=== PATIENT | male | born 1955 | race Caucasian/White ===

== ENCOUNTER 2018-01-28 18:41 | Emergency (ER) | payer OTHER ==
[~2018-01-28 18:41] MED LIST: ABIL5TAB6 PO; ECOT81TA2 PO; OMEP20TA39 PO; PRAV40 PO; TRAZ50TA4 PO
== END 2018-01-28 19:44 | disposition left against medical advice (07) ==
LOC: NED 18:41
DX: Z53.21 Procedure and treatment not carried out due to patient leaving prior to being seen by health care provider (principal)
CPT/HCPCS: 99281

== ENCOUNTER → 2018-04-01 | Outpatient (CLI) | payer OTHER ==
[~2018-04-01] MED LIST changes: +IOHEXOL 350 MG/ML 10 ML VIAL (for RAD DIAG) IVCONTRAST ONE
--- NOTE | 2018-04-01 14:40 | RADRPT ---
EXAM DATE: 04/01/2018 12:00 PM EDT AGE/SEX: 62 years / Male INDICATIONS: Chest pain, small reversible inferoapical defect on nuclear stress test CLINICAL DATA: This is the patient's initial encounter. Patient reports that signs and symptoms have been present for 1 day and indicates a pain score of 0/10. MEDICAL/SURGICAL HISTORY: Hypertension. . liver surgery RADIATION DOSE: 3.65 CTDI (mGy) COMPARISON: No prior [place] exams available for comparison. STUDY QUALITY: The examination is of good diagnostic quality. TECHNIQUE: The patient was given beta-blockers prior to the procedure. Resting heart rate prior to t he procedure was approximately bpm. Multiple contiguous axial images were obtained through the heart during bolus infusion of 90 ml Omnipaque 350 (iohexol) nonionic water-soluble contrast as a single e xam dose. Images were acquired during peak arterial contrast. Images were reconstructed using a retr ospective gating algorithm including single sector and multi-sector algorithms at multiple phases of the cardiac cycle. Images were interpreted using a combination of 2D and 3D visualization modes inclu ding curved planar reformation, thin slab maximum intensity projection and volume rendering in order to evaluate cardiac structure, morphology and function. Using automated exposure control and adjustme nt of the mA and/or kV according to patient size, radiation dose was kept as low as reasonably achiev able to obtain optimal diagnostic quality. FINDINGS: The limited portion of pulmonary parenchyma visualized is clear. Noncontrast calcium scoring was performed. This demonstrated total calcium score of 233. This places the patient in the 60th percentile rank. Immediately following this, post contrast CT angiography of the coronary circulation was performed. VESSEL ANALYSIS: There are three aortic valve leaflets with normal origin of the coronary ostia. DOMINANCE: The coronary system is right dominant. LEFT MAIN: Normal size vessel without calcification or stenosis. LAD: There is patchy atherosclerotic disease involving the proximal LAD. There is both hard and soft plaque present. These lesions result in only mild stenosis. They do not appear hemodynamically signi ficant. The more distal portion of the LAD again demonstrate some scattered areas of soft plaque but no definite focal high-grade lesions. CIRCUMFLEX: There is a single punctate calcified plaque in the proximal circumflex. There is a small amount of soft plaquing associated with this as well. This does not appear hemodynamically significa nt. The more distal portions of the circumflex appear disease free. RCA: The right main coronary is a normal size vessel. There is an early bifurcation of the right cor onary artery. Both branches of the right coronary appear patent throughout their course. The PDA is patent. WALL MOTION: There is good contractility with synchronous wall motion and wall thickening in all seg ments of the left ventricle. No segmental wall motion abnormalities are identified. CONCLUSION: 1. The examination demonstrates patchy atherosclerotic disease in both the LAD and the circumflex. T here is hard and soft plaque present. While there is disease identified, this does not appear hemodyn amically significant. Electronically signed by: Mina Tim MD 04/01/2018 2:39 PM EDT
== END ==
LOC: HRAD 09:27
DX: R07.9 Chest pain, unspecified (principal)
CPT/HCPCS: 75574; Q9967